=== PATIENT | female | born 1990 | race Caucasian/White ===

== ENCOUNTER 2020-01-17 12:09 | Emergency (ER) | payer MEDICARE, MEDICAID, SELFPAY ==
[2020-01-17 12:40] VITALS: BP 112/70; PULSE 90; RESP 14; TEMP 36.9; O2SAT 98; BMI 30.9
--- NOTE | 2020-01-17 13:17 | HMH.EDUTC ---
[facility] [place] Clinical Impression: Exposure to COVID-19 virus Disposition: Home, Self-Care Condition on Discharge: Good Instructions: Preventing the Spread of Coronavirus Discharge Instructions Additional Instructions: Drink plenty of fluids. Take tylenol for pain or fever. Follow up with your regular doctor. GO TO THE ER FOR ANY WORSENING SYMPTOMS Referrals: Hamlet Mcduffie MD [Primary Care Provider] - Time of Disposition: 13:18 Medical Decision Making - Medical Records Medical records reviewed: No: I reviewed the patient's medical records. - [place] Inquiry Pt receiving controlled substance: No Vital Signs: 01/17/20 12:40 01/17/20 14:00 Temperature 98.4 F 98.4 F Temperature Source Oral Oral Pulse Rate 90 Pulse Rate [Radial] 90 Respiratory Rate 14 14 Blood Pressure 112/70 Blood Pressure [Right Arm] 112/70 Blood Pressure Mean [Right Arm] 84 Blood Pressure Source Automatic Cuff Blood Pressure Source [Right Arm] Automatic Cuff Blood Pressure Position Sitting Blood Pressure Position [Right Arm] Sitting 02 Sat by Pulse Oximetry 98 Oxygen Delivery Method Room Air Room Air Orders (Tests/Meds): ORDERS Category Date Time Status Covid-19 Nasal PCR ([facility]) Stat Lab 01/17/20 12:45 [place] [facility] [place] - General Stated complaint: Covid exposure Time Seen by Provider: 01/17/20 13:17 - History of Present Illness Provider Complaint: She states that she was exposed to covid by a family member. She denies any symptoms. - Related Data Home Medications Medication Instructions Recorded Confirmed dicyclomine 10 mg/5 mL oral 20 mg PO TID 01/09/20 01/09/20 solution Previous Rx's Medication Instructions Recorded albuterol sulfate 90 mcg/actuation 2 puff INHALATION Q6H PRN #18 g 01/09/20 aerosol inhaler fluoxetine 20 mg capsule 20 mg PO DAILY #90 cap 01/09/20 fluticasone 250 mcg-salmeterol 50 2 inh INHALATION BID #60 each 01/09/20 mcg/dose blistr powdr for inhalation gabapentin 100 mg capsule 200 mg PO HS #30 cap 01/09/20 loratadine 10 mg capsule 10 mg PO DAILY #90 cap 01/09/20 methylprednisolone 4 mg tablets in See Rx Instructions PO PER PKG DIR 01/09/20 a dose pack #21 tab pravastatin 20 mg tablet 20 mg PO HS #90 tab 01/09/20 Allergies Allergy/AdvReac Type Severity Reaction Status Date / Time amoxicillin [From Augmentin] Allergy Unknown Verified 01/09/20 10:46 clarithromycin [From Biaxin] Allergy Unknown Verified 01/09/20 10:46 clavulanic acid Allergy Unknown Verified 01/09/20 10:46 [From Augmentin] ketorolac [From Toradol] Allergy Unknown Verified 01/09/20 10:46 latex Allergy Unknown Verified 01/09/20 10:46 Sulfa (Sulfonamide Allergy Unknown Verified 01/09/20 10:46 Antibiotics) fluoride Allergy Verified 01/09/20 10:46 [facility] History - Hepatitis A Screen Attestation statement:: This patient has been screened for Hepatitis A risk factors. I have reviewed the patient's past medical history: Yes Medical History: Reports:: Anxiety, Asthma, Depression, Hypertension, Migraine Other Medical History: Reports: Sinus Problems Laterality Cases: Bilateral: Tonsillectomy, Other ([place] teeth extraction) Fractures: Yes - Social History Smoking Status: Never smoker Alcohol Intake: never Substance Use Type: denies use Occupational Status: disabled Housing: house Household Members: family - Psychiatric History Pschychiatric History:: Reports:: Anxiety, Depression ROS Obtained: Yes All systems reviewed & no additional complaints - Constitutional Constitutional: Reports system reviewed and no additional complaints, except as docu - Eyes Eyes: Reports system reviewed and no additional complaints, except as docu - ENT Ears, Nose, Mouth, and Throat: Reports system reviewed and no additional complaints, except as docu - Cardiovascular Cardiovascular: Reports system reviewed and no additional complaints, except as docu - Respiratory
[2020-01-17 14:00] VITALS: BP 112/70; PULSE 90; RESP 14; TEMP 36.9; O2SAT 98
== END 2020-01-17 14:01 | disposition home or self-care (01) ==
PROVIDERS: Emergency Provider Nurse Practitioner Family; PCP Family Medicine
DX: U07.1 COVID-19 (principal); F41.8 Other specified anxiety disorders; I10 Essential (primary) hypertension; J45.909 Unspecified asthma, uncomplicated; G43.709 Chronic migraine without aura, not intractable, without status migrainosus; Z91.040 Latex allergy status; Z88.1 Allergy status to other antibiotic agents; Z88.2 Allergy status to sulfonamides; Z79.899 Other long term (current) drug therapy
CPT/HCPCS: G0463; 99201; U0003

== ENCOUNTER 2024-03-07 15:21 | Outpatient (CLI) | payer MEDICARE, MEDICAID, SELFPAY ==
[2024-03-07 16:05] LABS: Basophils # 0.1 K/mm3 (0-0.2); Basophils % 0.6 % (0.1-2.0); Eosinophils # 0.2 K/mm3 (0.0-0.4); Eosinophils % 1.2 % (0.1-12.0); Hematocrit 44.4 % (37.0-47.0); Hemoglobin 14.5 g/dL (12.2-16.2); Lymphocytes # 1.9 K/mm3 (0.7-4.5); Lymphocytes % 15.8 % (10-50); Mean Corpuscular HGB Conc 32.7 g/dL (31.8-35.4); Mean Corpuscular Hemoglobin 27.4 pg (27.0-31.2); Mean Corpuscular Volume 83.8 fl (81-99); Mean Platelet Volume 10.4 fl (7.4-10.4); Monocytes # 0.6 K/mm3 (0.1-1.0); Monocytes % 5.2 % (1.7-9.3); Neutrophils # 9.4 K/mm3 (1.8-7.8); Platelet Count 420 K/mm3 (142-424); Red Cell Distribution Width 13.8 % (11.5-17.5); White Blood Count 12.2 K/mm3 (4.8-10.8)
[2024-03-07 16:20] LABS: D-Dimer 0.39 ug/mL (0.0-0.5)
[2024-03-07 16:21] LABS: Albumin Level 4.9 g/dl (3.5-5.0); Chloride 103 mmol/L (98-107); Sodium 140 mmol/L (136-145)
[2024-03-07 16:22] LABS: Potassium 4.5 mmoL/L (3.5-5.1)
[2024-03-07 16:24] LABS: Alanine Aminotransferase 19 U/L (12-78); Alkaline Phosphatase 94 U/L (38-126); Anion Gap 16.5 mEq/L (5-15); Aspartate Amino Transferase 27 U/L (14-36); Bilirubin,Direct 0.3 mg/dl (0.0-0.4); Bilirubin,Indirect 0.3 mg/dL (0.0-0.9); Bilirubin,Total 0.6 mg/dl (0.2-1.3); Bilirubin,Unconjugated 0.3 mg/dL (0.0-1.1); Blood Urea Nitrogen 18 mg/dl (7-17); Carbon Dioxide 25 mmol/L (22.0-30.0); Estimated Glomerular Filt Rate 82 ml/min (>60); GFR (African American) 99 ML/MIN (>60); Total Protein,Serum 7.5 g/dl (6.3-8.2)
[2024-03-07 16:25] LABS: Calcium 10.6 mg/dl (8.4-10.2); Chol/HDL Ratio 3.8 (1-3.5); Cholesterol 306 mg/dl (140-200); Glucose 90 mg/dl (74-100); HDL Cholesterol 80 mg/dl (40-60); Triglycerides 244 mg/dl (30-150); VLDL Cholesterol 49 mg/dL (0-40)
[2024-03-07 16:39] LABS: Direct LDL Cholesterol 189.88 mg/dL (100-129)
[2024-03-07 16:44] LABS: Free T4 (Free Thyroxine) 0.93 ng/dl (0.78-2.19)
[2024-03-07 16:59] LABS: Thyroid Stimulating Hormone 0.81 uIU/mL (0.465-4.68)
== END 2024-03-07 23:59 | disposition home or self-care (01) ==
LOC: RT 15:22
PROVIDERS: PCP Nurse Practitioner Family; Visit Provider Nurse Practitioner
DX: R00.2 Palpitations (principal); R07.89 Other chest pain; R06.09 Other forms of dyspnea; Z82.49 Family history of ischemic heart disease and other diseases of the circulatory system
CPT/HCPCS: 36415; 80048; 80061; 80076; 84439; 84443; 85025; 85378; 93270

== ENCOUNTER 2024-03-20 09:46 | Outpatient (CLI) | payer MEDICARE, MEDICAID, SELFPAY ==
--- NOTE | 2024-03-20 | CA_ITS ---
APPROVED REPORT Exam: Exercise Treadmill Technologist: Samira Durham Ht: 5 ft 4 in Wt: 224 lbs BSA: 2.05 m2 HR: 77 bpm BP: 132/75 mmHg Stress Test Details Test: Exercise stress testing was performed using a Nole protocol. HR Resting HR: 77 bpm Max Heart Rate (APMHR): 185 bpm Max HR Achieved: 163 bpm Target HR (85% APMHR): 157 bpm % of APMHR: 88 Recovery HR: 101 bpm HR response to stress: Normal HR response to stress BP Resting BP: 132.0/75.0 mmHg Max BP: 160.0/78.0 mmHg Recovery BP: 134.0/83.0 mmHg BP response to stress: Normal blood pressure response to stress. ECG Resting ECG: NSR Stress ECG: < 0.[address] depression Clinical Exercise duration: 5:03 min Exercise capacity: 7.1 METs Overall Exercise Capacity for Age: Fair Stress ECG Conclusion Symptoms: Shortness of breath Arrhythmias/Ectopy: None ST-T Changes: 0.[address] depression CONCLUSION Fair exercise capacity No evidence of ischemic ECG changes at peak stress. Electronically signed by : Cherelle Bradley MD 03/20/2024 12:38:09
== END 2024-03-20 23:59 | disposition home or self-care (01) ==
LOC: RT 09:46
PROVIDERS: PCP Nurse Practitioner Family; Visit Provider Nurse Practitioner
DX: R07.9 Chest pain, unspecified (principal)
CPT/HCPCS: 93017; 93018

== ENCOUNTER 2024-03-28 12:48 | Outpatient (CLI) | payer MEDICARE, MEDICAID, SELFPAY ==
--- NOTE | 2024-03-28 13:02 | CA_ITS ---
APPROVED REPORT EXAM: Comprehensive 2D, Doppler, and color-flow Echocardiogram [employer]a Integration Developer: Angelita Joseph CRT Ht: 5 ft 4 in Wt: 224lbs BSA: 2.05 BP: 131/83 mmHg Indications: Chest Pain, Shortness of Breath, Palpitations 2D Dimensions Left Atrium 3.36 cm LVEF (Alvarado's) 57.30 % LVOT 1.79 cm (M/F) 1.5-2.5 LV Volume 128.80 mL LA Volume 20.70 mL LA Volume Index 10.10 mL/m2 (M/F) 16-34 EF AP4 54.50 % EF AP2 63.5 % EF BP 57.3 % GL Strain -14.9 % M-Mode Dimensions RVDd 1.99 cm (0.9-2.6) LVDd 5.30 cm (3.5-5.7) Ao Diam 3.23 cm (2.0-3.7) LVDs 3.35 cm (3.5-5.7) IVSd 0.89 cm (0.6-1.1) PWd 0.82 cm (0.6-1.1) EF (Teich) 66.10% FS 36.80% EDV (Teich) 135.30 mL TAPSE 2.76 (<1.7) ESV (Teich) 45.80 mL LV Diastology E Decel Time 231 (160-240 msec) E/A Ratio 1.32 MED E' 9.5 (>= 7 cm/sec) MED A' 8.40 cm/s E'/MED E' Ratio 11.14 (<= 14) LAT E' 15.3 (>= 10 cm/sec) LAT A' 8.40 cm/s E/LAT E' Ratio 6.92 (<= 14) Aortic Valve AoV Peak Christopher. 140.0 (50-130 cm/s) AO Peak GR. 7.80 mmHg Mitral Valve MV E Max Christopher. 106.0 (40-130 cm/s) MV A Velocity 80.0 (40-130 cm/s) E/A Ratio 1.32 MV Decel. Time 231 (160-240 ms) Tricuspid Valve TR P. Velocity 252.00 cm/s RAP Estimate 10.00 mmHg RVSP 35.40 mmHg Left Ventricle The left ventricle is normal size. The left ventricular systolic function is normal. The left ventricular ejection fraction is within the normal range. There is normal left ventricular wall thickness. There is normal LV segmental wall motion. The left ventricular diastolic function is normal. LVEF is 55%. Right Ventricle The right ventricle is normal size. The right ventricular systolic function is normal. Atria The left atrium size is normal. The right atrium size is normal. There is no Doppler evidence of interatrial shunt. Aortic Valve Aortic valve opens well. There is no aortic valvular stenosis. No aortic regurgitation is present. Mitral Valve The mitral valve is normal in structure. No evidence of mitral valve stenosis. There is no mitral valve regurgitation noted. Tricuspid Valve Tricuspid valve is grossly normal in structure and function. Trace tricuspid regurgitation. There is insufficient TR jet to estimate RVSP. Pulmonic Valve The pulmonary valve is normal in structure. Mild pulmonic regurgitation. Great Vessels The aortic root is normal in size. IVC is normal in size and collapses >50% with inspiration. Pericardium There is no pericardial effusion. Other Information Study Quality: Fair Conclusion Normal biventricular systolic function. Mild DC. Electronically signed by : Cherelle Bradley MD 04/06/2024 21:36:12
== END 2024-03-28 23:59 | disposition home or self-care (01) ==
LOC: RT 12:48
PROVIDERS: PCP Nurse Practitioner Family; Visit Provider Nurse Practitioner
DX: I37.1 Nonrheumatic pulmonary valve insufficiency (principal); R07.89 Other chest pain; R06.09 Other forms of dyspnea; R00.2 Palpitations; Z82.49 Family history of ischemic heart disease and other diseases of the circulatory system
CPT/HCPCS: 93306

== ENCOUNTER 2024-04-04 12:00 | Outpatient (CLI) | payer MEDICARE, MEDICAID, SELFPAY ==
--- NOTE | 2024-04-04 12:02 | XR_ITS ---
FINAL REPORT TECHNIQUE: Chest PA & Lateral CLINICAL HISTORY: chest pain COMPARISON: None FINDINGS: 2 views of the chest were performed. The heart size is normal. The mediastinum is within normal limits. There is no acute cardiopulmonary process. There are no pleural effusions. There is no pneumothorax. The bony thorax appears intact. IMPRESSION: No acute cardiopulmonary process. Reviewed, Interpreted and Dictated by Leoncio Carreon MD Transcribed by Winnie Allen Authenticated and [facility]
== END 2024-04-04 23:59 | disposition home or self-care (01) ==
LOC: RAD 12:00
PROVIDERS: PCP Nurse Practitioner Family; Visit Provider Nurse Practitioner Family
DX: R07.9 Chest pain, unspecified (principal)
CPT/HCPCS: 71046

== ENCOUNTER 2024-07-15 11:29 | Outpatient (CLI) | payer MEDICARE, MEDICAID, SELFPAY ==
[2024-07-15 12:28] LABS: Basophils % 0.4 % (0.1-2.0); Eosinophils # 0.1 Kmm3 (0.0-0.4); Eosinophils % 1.5 % (0.1-12.0); Hemoglobin 13.7 g/dL (12.2-16.2); Immature Granulocytes # 0.02 10^3uL; Immature Granulocytes % 0.2 %; Lymphocytes # 1.8 K/mm3 (0.7-4.5); Lymphocytes % 19.8 % (10-50); Mean Corpuscular HGB Conc 32.6 g/dL (31.8-35.4); Mean Corpuscular Hemoglobin 27.7 pg (27.0-31.2); Mean Platelet Volume 10.8 fl (7.4-10.4); Monocytes # 0.7 K/mm3 (0.1-1.0); Monocytes % 7.1 % (1.7-9.3); Neutrophils # 6.5 K/mm3 (1.8-7.8); Nucleated Red Blood Cells # 0 10^3/uL; Nucleated Red Blood Cells % 0 %; Platelet Count 332 K/mm3 (142-424); Red Blood Count 4.94 M/mm3 (4.20-5.40); Red Cell Distribution Width 13.3 % (11.5-17.5); Red Cell Distribution Width-SD 41.3 fL; White Blood Count 9.2 K/mm3 (4.8-10.8)
[2024-07-15 13:30] LABS: Albumin Level 4.8 g/dl (3.5-5.0)
[2024-07-15 13:31] LABS: Chloride 108 mmol/L (98-107); Potassium 4.2 mmoL/L (3.5-5.1); Sodium 138 mmol/L (136-145)
[2024-07-15 13:33] LABS: Alanine Aminotransferase 27 U/L (12-78); Anion Gap 12.2 mEq/L (5-15); Aspartate Amino Transferase 28 U/L (14-36); Bilirubin,Unconjugated 0.4 mg/dL (0.0-1.1); Blood Urea Nitrogen 11 mg/dl (7-17); Carbon Dioxide 22 mmol/L (22.0-30.0); Estimated Glomerular Filt Rate 95 ml/min (>60); GFR (African American) 115 ML/MIN (>60)
[2024-07-15 13:34] LABS: Alkaline Phosphatase 108 U/L (38-126); Bilirubin,Direct 0.1 mg/dl (0.0-0.4); Bilirubin,Indirect 0.4 mg/dL (0.0-0.9); Bilirubin,Total 0.5 mg/dl (0.2-1.3); Calcium 9.5 mg/dl (8.4-10.2); Chol/HDL Ratio 2.3 (1-3.5); Cholesterol 137 mg/dl (140-200); Glucose 95 mg/dl (74-100); HDL Cholesterol 60 mg/dl (40-60); Total Protein,Serum 7.1 g/dl (6.3-8.2); Triglycerides 111 mg/dl (30-150); VLDL Cholesterol 22 mg/dL (0-40)
[2024-07-15 13:50] LABS: Free T4 (Free Thyroxine) 0.69 ng/dl (0.78-2.19)
[2024-07-15 14:04] LABS: Thyroid Stimulating Hormone 1.52 uIU/mL (0.465-4.68)
== END 2024-07-15 23:59 | disposition home or self-care (01) ==
LOC: LAB 11:30
PROVIDERS: PCP Nurse Practitioner Family; Visit Provider Nurse Practitioner
DX: E78.5 Hyperlipidemia, unspecified (principal); Z82.49 Family history of ischemic heart disease and other diseases of the circulatory system; Z79.899 Other long term (current) drug therapy
CPT/HCPCS: 36415; 80048; 80061; 80076; 83735; 84439; 84443; 85025